=== PATIENT | female | born 1955 | race Caucasian/White ===

== ENCOUNTER 2021-07-14 08:28 | Outpatient (CLI) | payer BC, SELFPAY ==
[2021-07-14 08:40] VITALS: BP 123/83; PULSE 68; RESP 18; TEMP 36.8; O2SAT 93
[2021-07-14 08:58] VITALS: BMI 34.4
[2021-07-14 09:26] VITALS: BP 136/87; PULSE 60; RESP 18; TEMP 36.9; O2SAT 95
[2021-07-14 11:10] VITALS: BP 123/85; PULSE 60; RESP 18; TEMP 36.4; O2SAT 97
== END 2021-07-14 08:29 | disposition home or self-care (01) ==
LOC: OPS 08:29
PROVIDERS: PCP Nurse Practitioner Family; Visit Provider Nurse Practitioner Family
DX: U07.1 COVID-19 (principal)
CPT/HCPCS: 96365

== ENCOUNTER 2021-10-12 20:00 | Outpatient (CLI) | payer BC, SELFPAY | END 2021-10-12 20:01 | disposition home or self-care (01) | LOC: SLEEP 10-13 09:06 | PROVIDERS: PCP Nurse Practitioner Family; Visit Provider Family Medicine | DX: G47.33 Obstructive sleep apnea (adult) (pediatric) (principal); R53.83 Other fatigue | CPT/HCPCS: 95810 ==